=== PATIENT | male | born 1955 | race Two or more races ===

== ENCOUNTER 2021-02-23 12:56 | Emergency (ER) | payer OTHER ==
[~2021-02-23] VITALS: Ht 175.3 cm; Wt 99.8 kg
[2021-02-23] MEDS ORDERED: SIMVASTATIN5 MG PO (13:07)
[2021-02-23] MEDS ORDERED: ZESTORETIC 10-1 EACH PO (13:07)
[2021-02-23] MEDS ORDERED: SYNTHROID75 MCG PO (13:07)
[2021-02-23] MEDS ORDERED: DUI500 PO (16:00)
== END 2021-02-23 16:36 | disposition home or self-care (01) ==
LOC: ER 12:56
DX: L02.511 Cutaneous abscess of right hand (principal); S61.411S Laceration without foreign body of right hand, sequela; B95.61 Methicillin susceptible Staphylococcus aureus infection as the cause of diseases classified elsewhere; W45.8XXS Other foreign body or object entering through skin, sequela

== ENCOUNTER → 2021-07-11 | Emergency (ER) | payer OTHER ==
[~2021-07-11] VITALS: Ht 162.6 cm; Wt 96.2 kg
[~2021-07-11] MED LIST: DICLOFENAC POTA50 MG PO; DUI500 PO; MEDROLPACK PO; SIMVASTATIN5 MG PO; SYNTHROID75 MCG PO; VALACYCLOVIR1000 MG PO; ZESTORETIC 10-1 EACH PO
== END | disposition home or self-care (01) ==
LOC: ER 11:58
DX: M25.561 Pain in right knee (principal); B02.9 Zoster without complications; S83.8X1S Sprain of other specified parts of right knee, sequela; X50.0XXS Overexertion from strenuous movement or load, sequela

== ENCOUNTER 2022-08-06 09:49 | Emergency (ER) | payer OTHER ==
[~2022-08-06] VITALS: Ht 165.1 cm; Wt 97.5 kg
[2022-08-06] MEDS ORDERED: TUSSI PRES-B L480 ML PO (13:45)
[2022-08-06] MEDS ORDERED: MEDROLPACK PO (13:45)
[2022-08-06] MEDS ORDERED: AMOX-CLAV 875-1 EACH PO (13:45)
== END 2022-08-06 13:55 | disposition home or self-care (01) ==
LOC: ER 09:49
DX: J06.9 Acute upper respiratory infection, unspecified (principal); R05.9 Cough, unspecified; R09.3 Abnormal sputum; I10 Essential (primary) hypertension; E03.9 Hypothyroidism, unspecified; Z20.822 Contact with and (suspected) exposure to COVID-19

== ENCOUNTER 2024-04-15 13:15 | Outpatient (CLI) | payer OTHER ==
[~2024-04-15 13:15] MED LIST changes: +AMOX-CLAV 875-1 EACH PO; +TUSSI PRES-B L480 ML PO
== END 2024-04-15 13:17 | disposition home or self-care (01) ==
LOC: RAD 13:15
DX: I11.9 Hypertensive heart disease without heart failure (principal)

== ENCOUNTER 2024-12-17 11:23 | Outpatient (CLI) | payer OTHER | END 2024-12-17 11:28 | disposition home or self-care (01) | LOC: RAD 11:23 | PROVIDERS: ATTEND Internal Medicine Pulmonary Disease | DX: R05.3 Chronic cough (principal) ==